=== PATIENT | female | born 1955 | race Caucasian/White ===

== ENCOUNTER 2018-07-21 18:52 | Inpatient (IN) | payer MEDICAID ==
[~2018-07-21] VITALS: Ht 157.5 cm; Wt 86.0 kg
[~2018-07-21 18:52] MED LIST: OMNIPAQUE 350 MG/ML, 100ML BOTTLE ONE
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
[2018-07-21] MEDS ORDERED: ONDANSETRON 2MG/ML, 2ML IVPush ONE (19:30)
[2018-07-21] MEDS ORDERED: PROMETHAZINE 25 MG/ML, 1ML IM ONE (19:30)
[2018-07-21] MEDS ORDERED: SODIUM CHLORIDE 0.9% 1,000ML IVBOLUS ONE (19:30)
[2018-07-21] MEDS ORDERED: FAMOTIDINE 20 MG/2 ML IVP ONE (19:30)
[2018-07-21] MEDS ORDERED: FAMOTIDINE 20 MG/2 ML ONE (19:37)
[2018-07-21] MEDS ORDERED: ONDANSETRON 2MG/ML, 2ML ONE (19:38)
[2018-07-21] MEDS ORDERED: PROMETHAZINE 25 MG/ML, 1ML ONE (19:38)
[2018-07-21] MEDS ORDERED: MORPHINE SULFATE 4 MG/ML, 1ML ONE (19:38)
[2018-07-21 19:46] LABS: BASOPHILS # (AUTO) 0.02 x10^3/uL (0-0.1); BASOPHILS % (AUTO) 0 % (0-1); EOSINOPHILS # (AUTO) 0.15 x10^3/uL (0-0.4); EOSINOPHILS % (AUTO) 2 % (1-7); LYMPHOCYTES # (AUTO) 1.56 x10^3/uL (1-3.4); LYMPHOCYTES % (AUTO) 16 % (22-44); MD NO; MEAN CORPUSCULAR HEMOGLOBIN 28.5 pg (27.0-34.8); MEAN CORPUSCULAR HGB CONC 32.7 g/dL (32.4-35.8); MEAN CORPUSCULAR VOLUME 87.4 fL (80-100); MEAN PLATELET VOLUME 8.1 fL (7.4-10.4); MONOCYTES # (AUTO) 0.47 x10^3/uL (0.2-0.8); MONOCYTES % (AUTO) 5 % (2-9); NEUTROPHILS # (AUTO) 7.62 x10^3/uL (1.8-6.8); NEUTROPHILS % (AUTO) 78 % (42-75); PLATELET COUNT 226 x10^3/uL (130-400); RED BLOOD COUNT 5.54 x10^6/uL (3.82-5.3); RED CELL DISTRIBUTION WIDTH 14.5 % (9.6-15.2)
[2018-07-21] MEDS: MORPHINE SULFATE 4 MG/ML, 1ML IVPush PRN ×2 (19:50→20:13)
[2018-07-21 19:53] LABS: ALANINE AMINOTRANSFERASE 270 U/L (12-78); ALBUMIN 3.1 g/dL (3.4-5.0); ANION GAP 9 mmol/L (5-15); CALCIUM 9.2 mg/dL (8.5-10.1); CHLORIDE 105 mmol/L (98-107); CREATININE 0.86 mg/dL (0.55-1.02)
[2018-07-21 19:55] LABS: ALKALINE PHOSPHATASE 221 U/L (45-117); BILIRUBIN,TOTAL 1.3 mg/dL (0.2-1.0)
--- NOTE | 2018-07-21 19:56 | NUR ---
NOTED PT'S LEFT A/C IV SITE DISLODGED, NO SWELLING OR REDNESS NOTED, 2X2 DSG APPLIED. NEW IV SITE STARTED, PT MEDICATED PER MAY.
--- NOTE | 2018-07-21 20:11 | NUR ---
pt to ct
--- NOTE | 2018-07-21 20:14 | NUR ---
LATE ENTRY 1950- PAIN MEDICATION ELD PT DROWSY AND NODDING OFF DURING OTHER MEDICATION ADMINISTRATION, ERP AWARE
[2018-07-21] MEDS ORDERED: INSU100C5 SQ-INSULIN (20:38)
[2018-07-21] MEDS ORDERED: METH10TA2 PO (20:38)
[2018-07-21] MEDS ORDERED: LISI5TAB7 PO (20:38)
[2018-07-21] MEDS ORDERED: OXYC5CAP2 PO (20:38)
[2018-07-21] MEDS ORDERED: ATOR20TA PO (20:38)
[2018-07-21] MEDS ORDERED: EMPA25TA PO (20:38)
[2018-07-21] MEDS ORDERED: INSU300I SQ (20:38)
[2018-07-21] MEDS ORDERED: ASPI-496 PO (20:38)
[2018-07-21] MEDS ORDERED: METF500T17 PO (20:38)
[2018-07-21] MEDS ORDERED: RANI-448 PO (20:41)
[2018-07-21] MEDS ORDERED: GABA600T7 PO (20:42)
[2018-07-21] MEDS ORDERED: GLUCAGON 1 MG IM PRN (21:00)
[2018-07-21] MEDS ORDERED: DEXTROSE 4 GM TAB.CHEW PO PRN (21:00)
[2018-07-21] MEDS ORDERED: DEXTROSE 50%, 50ML SYRINGE IVPush PRN (21:00)
--- NOTE | 2018-07-21 21:01 | NUR ---
PT RESTING WITH EYES CLOSED, NADN, RESPIRATIONS EVEN AND UNLABORED, MONITORS IN PLACE, CALL LIGHT WITHIN REACH. AWAITING ROOM FOR ADMIT
[2018-07-21 21:09] LABS: SALICYLATE LEVEL 1.8 mg/dL (2.8-20.0)
[2018-07-21 21:10] LABS: ACETAMINOPHEN < 2 mcg/mL (10-30)
[2018-07-21 21:12] LABS: TROPONIN I < 0.015 ng/mL (0.000-0.045)
[2018-07-21 22:40] VITALS: BP 145/82
[2018-07-21] MEDS: SODIUM CHLORIDE 0.9% 1,000 ML IV SCH (23:32)
[2018-07-21] MEDS: INSULIN LISPRO 100 UNITS/ML, PEN SQ-INSULIN SCH (23:32)
[2018-07-21] MEDS: SODIUM CHLORIDE FLUSH 10ML SYR IVF SCH (23:33)
[2018-07-22] MEDS: MORPHINE SULFATE 4 MG/ML, 1ML IVPush PRN ×4 (00:37→21:14)
[2018-07-22 00:40] VITALS: BP 119/73
[2018-07-22 05:09] LABS: MEAN CORPUSCULAR HEMOGLOBIN 27.7 pg (27.0-34.8); MEAN CORPUSCULAR HGB CONC 31.8 g/dL (32.4-35.8); MEAN CORPUSCULAR VOLUME 87.1 fL (80-100); MEAN PLATELET VOLUME 7.9 fL (7.4-10.4); PLATELET COUNT 224 x10^3/uL (130-400); RED CELL DISTRIBUTION WIDTH 14.8 % (9.6-15.2)
[2018-07-22 05:13] LABS: ALBUMIN 2.9 g/dL (3.4-5.0); ANION GAP 6 mmol/L (5-15); BILIRUBIN, DIRECT 0.2 mg/dL (0.1-0.2); CALCIUM 8.4 mg/dL (8.5-10.1); CHLORIDE 109 mmol/L (98-107)
[2018-07-22 05:17] LABS: ALANINE AMINOTRANSFERASE 377 U/L (12-78); ALKALINE PHOSPHATASE 206 U/L (45-117); BILIRUBIN,INDIRECT 0.4 mg/dL (0.0-2.0); BILIRUBIN,TOTAL 0.6 mg/dL (0.2-1.0); CREATININE 0.67 mg/dL (0.55-1.02); TOTAL PROTEIN 6.6 g/dL (6.4-8.2)
[2018-07-22 05:47] LABS: BASOPHILS % (AUTO) 0 % (0-1); EOSINOPHILS # (AUTO) 0.03 x10^3/uL (0-0.4); EOSINOPHILS % (AUTO) 0 % (1-7); LYMPHOCYTES % (AUTO) 7 % (22-44); MD SCAN; MONOCYTES # (AUTO) 0.48 x10^3/uL (0.2-0.8); MONOCYTES % (AUTO) 3 % (2-9); NEUTROPHILS # (AUTO) 13.65 x10^3/uL (1.8-6.8); NEUTROPHILS % (AUTO) 90 % (42-75)
[2018-07-22] MEDS: INSULIN LISPRO 100 UNITS/ML, PEN SQ-INSULIN SCH ×4 (07:00→21:03)
[2018-07-22] MEDS ORDERED: ALBUTEROL SULFATE 2.5 MG/3 ML ONE (08:08)
[2018-07-22] MEDS: ALBUTEROL SULFATE 2.5 MG/3 ML NPPB SCH ×4 (08:15→20:50)
[2018-07-22] MEDS: BUDESONIDE 0.5 MG/2 ML INHA INH SCH ×2 (08:15→20:50)
[2018-07-22 08:27] VITALS: BP 122/74
[2018-07-22] MEDS: SODIUM CHLORIDE FLUSH 10ML SYR IVF SCH ×2 (08:53→21:04)
[2018-07-22] MEDS: SODIUM CHLORIDE 0.9% 1,000 ML IV SCH (08:53)
[2018-07-22 11:00] LABS: TROPONIN I < 0.015 ng/mL (0.000-0.045)
[2018-07-22 14:01] VITALS: BP 123/76
[2018-07-22] MEDS: ONDANSETRON 2MG/ML, 2ML IVPush PRN (15:48)
[2018-07-22 19:00] VITALS: BP 131/74
[2018-07-22] MEDS ORDERED: INSULIN GLARGINE 100 UNITS/ML, PEN SQ-INSULIN SCH (21:00)
[2018-07-22] MEDS: LISINOPRIL 5 MG TABLET PO SCH (21:03)
[2018-07-22] MEDS: GABAPENTIN 300 MG CAPSULE PO SCH (21:03)
[2018-07-23 00:27] VITALS: BP 124/67
[2018-07-23] MEDS: ONDANSETRON 2MG/ML, 2ML IVPush PRN ×2 (01:49→19:39)
[2018-07-23] MEDS: MORPHINE SULFATE 4 MG/ML, 1ML IVPush PRN ×4 (01:50→19:39)
[2018-07-23] MEDS: ALBUTEROL SULFATE 2.5 MG/3 ML NPPB SCH ×4 (05:50→20:10)
[2018-07-23 06:56] LABS: BASOPHILS # (AUTO) 0.01 x10^3/uL (0-0.1); BASOPHILS % (AUTO) 0 % (0-1); EOSINOPHILS # (AUTO) 0.08 x10^3/uL (0-0.4); EOSINOPHILS % (AUTO) 1 % (1-7); LYMPHOCYTES # (AUTO) 1.75 x10^3/uL (1-3.4); LYMPHOCYTES % (AUTO) 12 % (22-44); MD NO; MEAN CORPUSCULAR HEMOGLOBIN 28.5 pg (27.0-34.8); MEAN CORPUSCULAR HGB CONC 32.4 g/dL (32.4-35.8); MEAN CORPUSCULAR VOLUME 88.1 fL (80-100); MEAN PLATELET VOLUME 7.9 fL (7.4-10.4); MONOCYTES % (AUTO) 3 % (2-9); NEUTROPHILS # (AUTO) 12.65 x10^3/uL (1.8-6.8); NEUTROPHILS % (AUTO) 84 % (42-75); PLATELET COUNT 216 x10^3/uL (130-400); RED BLOOD COUNT 5.46 x10^6/uL (3.82-5.3); RED CELL DISTRIBUTION WIDTH 14.9 % (9.6-15.2)
[2018-07-23] MEDS: INSULIN LISPRO 100 UNITS/ML, PEN SQ-INSULIN SCH ×4 (07:00→19:46)
[2018-07-23 07:05] LABS: ALBUMIN 2.7 g/dL (3.4-5.0); ANION GAP 9 mmol/L (5-15); CHLORIDE 109 mmol/L (98-107)
[2018-07-23 07:10] LABS: ALANINE AMINOTRANSFERASE 201 U/L (12-78); ALKALINE PHOSPHATASE 168 U/L (45-117); BILIRUBIN,TOTAL 0.9 mg/dL (0.2-1.0); CREATININE 0.74 mg/dL (0.55-1.02)
[2018-07-23 07:53] VITALS: BP 128/74
[2018-07-23] MEDS: ATORVASTATIN 20 MG TABLET PO SCH (08:18)
[2018-07-23] MEDS: ASPIRIN 81 MG TABLET EC PO SCH (08:18)
[2018-07-23] MEDS: SODIUM CHLORIDE FLUSH 10ML SYR IVF SCH ×2 (08:18→20:00)
[2018-07-23] MEDS: POTASSIUM CHLORIDE 10 MEQ in D5%-LACTATED RINGERS 1,000 ML IV SCH ×2 (08:18→18:25)
[2018-07-23] MEDS ORDERED: LORazepam 2 MG/ML, 1ML IVPush ONE (08:30)
[2018-07-23] MEDS: BUDESONIDE 0.5 MG/2 ML INHA INH SCH ×2 (09:00→20:10)
[2018-07-23] MEDS: LIDODERM 5% PATCH TD SCH (11:54)
[2018-07-23 13:37] VITALS: BP 132/73
[2018-07-23] MEDS ORDERED: LORazepam 2 MG/ML, 1ML ONE (13:38)
[2018-07-23 18:59] VITALS: BP 136/80
[2018-07-23] MEDS: GABAPENTIN 300 MG CAPSULE PO SCH (20:00)
[2018-07-23] MEDS: LISINOPRIL 5 MG TABLET PO SCH (20:00)
[2018-07-24 00:09] VITALS: BP 118/72
[2018-07-24] MEDS: MORPHINE SULFATE 4 MG/ML, 1ML IVPush PRN ×3 (04:39→18:34)
[2018-07-24] MEDS: POTASSIUM CHLORIDE 10 MEQ in D5%-LACTATED RINGERS 1,000 ML IV SCH ×2 (05:00→18:29)
[2018-07-24 05:57] LABS: BASOPHILS # (AUTO) 0.02 x10^3/uL (0-0.1); BASOPHILS % (AUTO) 0 % (0-1); EOSINOPHILS # (AUTO) 0.24 x10^3/uL (0-0.4); EOSINOPHILS % (AUTO) 2 % (1-7); LYMPHOCYTES # (AUTO) 0.99 x10^3/uL (1-3.4); LYMPHOCYTES % (AUTO) 9 % (22-44); MD NO; MEAN CORPUSCULAR HEMOGLOBIN 28.3 pg (27.0-34.8); MEAN CORPUSCULAR HGB CONC 32.5 g/dL (32.4-35.8); MEAN CORPUSCULAR VOLUME 87.3 fL (80-100); MEAN PLATELET VOLUME 7.9 fL (7.4-10.4); MONOCYTES # (AUTO) 0.62 x10^3/uL (0.2-0.8); MONOCYTES % (AUTO) 6 % (2-9); NEUTROPHILS # (AUTO) 9.08 x10^3/uL (1.8-6.8); NEUTROPHILS % (AUTO) 83 % (42-75); PLATELET COUNT 206 x10^3/uL (130-400); RED CELL DISTRIBUTION WIDTH 14.7 % (9.6-15.2)
[2018-07-24 06:05] LABS: ALBUMIN 2.4 g/dL (3.4-5.0); ANION GAP 6 mmol/L (5-15); CHLORIDE 110 mmol/L (98-107)
[2018-07-24 06:15] LABS: ALANINE AMINOTRANSFERASE 121 U/L (12-78); ALKALINE PHOSPHATASE 144 U/L (45-117); CALCIUM 8.9 mg/dL (8.5-10.1); CREATININE 0.78 mg/dL (0.55-1.02); TOTAL PROTEIN 6.8 g/dL (6.4-8.2)
[2018-07-24] MEDS: INSULIN LISPRO 100 UNITS/ML, PEN SQ-INSULIN SCH ×4 (07:00→20:15)
[2018-07-24] MEDS: ALBUTEROL SULFATE 2.5 MG/3 ML NPPB SCH ×2 (07:05→10:27)
[2018-07-24 07:58] VITALS: BP 119/73
[2018-07-24] MEDS: ATORVASTATIN 20 MG TABLET PO SCH (08:30)
[2018-07-24] MEDS: ASPIRIN 81 MG TABLET EC PO SCH (08:30)
[2018-07-24] MEDS: SODIUM CHLORIDE FLUSH 10ML SYR IVF SCH ×2 (08:30→20:54)
[2018-07-24] MEDS: BUDESONIDE 0.5 MG/2 ML INHA INH SCH (09:00)
[2018-07-24] MEDS: LIDODERM 5% PATCH TD SCH (11:27)
[2018-07-24 12:00] VITALS: BP 128/71
[2018-07-24] MEDS ORDERED: BUPIVACAINE/PF-EPI 0.5% 1:200K ONE (15:49)
[2018-07-24] MEDS ORDERED: MIDAZOLAM 1 MG/ML, 2ML ONE (15:55)
[2018-07-24] MEDS ORDERED: FENTANYL PF 250 MCG/5ML ONE (15:55)
[2018-07-24] MEDS ORDERED: CEFAZOLIN 1,000 MG ONE (16:08)
[2018-07-24] MEDS ORDERED: SUCCINYLCHOLINE 20 MG/ML, 10ML ONE (16:08)
[2018-07-24] MEDS ORDERED: PROPOFOL 10 MG/ML, 20ML ONE (16:08)
[2018-07-24] MEDS ORDERED: DEXAMETHASONE 4 MG/ML, 1ML ONE (16:08)
[2018-07-24] MEDS ORDERED: ONDANSETRON 2MG/ML, 2ML ONE (16:08)
[2018-07-24] MEDS ORDERED: ROCURONIUM 10 MG/ML,10ML ONE (16:08)
[2018-07-24] MEDS ORDERED: MEPERIDINE/PF 25MG/0.5ML IVPush PRN (17:00)
[2018-07-24] MEDS ORDERED: PROMETHAZINE 25 MG/ML, 1ML IV PRN (17:00)
[2018-07-24] MEDS ORDERED: ONDANSETRON 2MG/ML, 2ML IVPush PRN (17:00)
[2018-07-24] MEDS ORDERED: METOCLOPRAMIDE 5 MG/ML, 2ML IV PRN (17:00)
[2018-07-24] MEDS ORDERED: hydrALAzine 20 MG/ML, 1ML IV PRN (17:00)
[2018-07-24] MEDS ORDERED: ALBUTEROL SULFATE 2.5 MG/3 ML NPPB PRN (17:00)
[2018-07-24] MEDS ORDERED: KETOROLAC 30 MG/1 ML IV PRN (17:00)
[2018-07-24] MEDS ORDERED: OXYcodone 5 MG/5 ML ORAL.SOL UDC PO PRN (17:00)
[2018-07-24] MEDS ORDERED: FENTANYL PF 100 MCG/2ML ONE (17:02)
[2018-07-24] MEDS ORDERED: PROMETHAZINE 25 MG/ML, 1ML ONE (17:02)
[2018-07-24] MEDS ORDERED: HYDROmorphone 2 MG/ML, 1ML ONE (17:03)
[2018-07-24] MEDS: FENTANYL PF 100 MCG/2ML IV PRN ×2 (17:09→17:36)
[2018-07-24] MEDS: HYDROmorphone 1 MG/ML, 1ML INJ IV PRN ×3 (17:11→17:41)
[2018-07-24] MEDS: LABETALOL 5MG/ML, 20ML IV PRN ×2 (17:25→17:35)
[2018-07-24] MEDS ORDERED: hydrALAzine 20 MG/ML, 1ML ONE (17:29)
[2018-07-24] MEDS: GABAPENTIN 300 MG CAPSULE PO SCH (20:53)
[2018-07-24] MEDS: LISINOPRIL 5 MG TABLET PO SCH (20:53)
[2018-07-24 21:00] VITALS: BP 128/67
[2018-07-24] MEDS ORDERED: MORPHINE SULFATE 4 MG/ML, 1ML IVPush ONE (21:00)
[2018-07-25] MEDS: MORPHINE SULFATE 4 MG/ML, 1ML IVPush PRN ×5 (01:06→21:46)
[2018-07-25 02:58] VITALS: BP 115/74
[2018-07-25] MEDS: POTASSIUM CHLORIDE 10 MEQ in D5%-LACTATED RINGERS 1,000 ML IV SCH (05:07)
[2018-07-25 06:09] LABS: ALBUMIN 2.2 g/dL (3.4-5.0); ANION GAP 7 mmol/L (5-15); CHLORIDE 109 mmol/L (98-107)
[2018-07-25 06:14] LABS: ALANINE AMINOTRANSFERASE 111 U/L (12-78); ALKALINE PHOSPHATASE 147 U/L (45-117); BILIRUBIN,TOTAL 0.7 mg/dL (0.2-1.0); CREATININE 0.58 mg/dL (0.55-1.02); TOTAL PROTEIN 6.4 g/dL (6.4-8.2)
[2018-07-25 07:25] VITALS: BP 119/77
[2018-07-25] MEDS: ASPIRIN 81 MG TABLET EC PO SCH (08:50)
[2018-07-25] MEDS: SODIUM CHLORIDE FLUSH 10ML SYR IVF SCH ×2 (08:50→21:46)
[2018-07-25] MEDS: ONDANSETRON 2MG/ML, 2ML IVPush PRN ×2 (08:50→17:04)
[2018-07-25] MEDS: ATORVASTATIN 20 MG TABLET PO SCH (08:51)
[2018-07-25] MEDS: INSULIN LISPRO 100 UNITS/ML, PEN SQ-INSULIN SCH ×4 (09:19→21:45)
[2018-07-25] MEDS: SODIUM CHLORIDE 0.9% 1,000 ML IV SCH ×2 (10:16→22:55)
[2018-07-25] MEDS: LIDODERM 5% PATCH TD SCH (13:25)
[2018-07-25 14:29] VITALS: BP 130/83
[2018-07-25 19:33] VITALS: BP 117/71
[2018-07-25] MEDS: LISINOPRIL 5 MG TABLET PO SCH (21:45)
[2018-07-25] MEDS: GABAPENTIN 300 MG CAPSULE PO SCH (21:45)
[2018-07-26 00:46] VITALS: BP 117/70
[2018-07-26] MEDS: MORPHINE SULFATE 4 MG/ML, 1ML IVPush PRN ×5 (02:12→21:53)
[2018-07-26 06:34] LABS: BASOPHILS # (AUTO) 0.01 x10^3/uL (0-0.1); BASOPHILS % (AUTO) 0 % (0-1); EOSINOPHILS # (AUTO) 0.11 x10^3/uL (0-0.4); EOSINOPHILS % (AUTO) 1 % (1-7); LYMPHOCYTES # (AUTO) 1.19 x10^3/uL (1-3.4); LYMPHOCYTES % (AUTO) 10 % (22-44); MD NO; MEAN CORPUSCULAR HEMOGLOBIN 28.5 pg (27.0-34.8); MEAN CORPUSCULAR HGB CONC 32.3 g/dL (32.4-35.8); MEAN CORPUSCULAR VOLUME 88.3 fL (80-100); MEAN PLATELET VOLUME 8.1 fL (7.4-10.4); MONOCYTES # (AUTO) 0.77 x10^3/uL (0.2-0.8); MONOCYTES % (AUTO) 6 % (2-9); NEUTROPHILS % (AUTO) 83 % (42-75); PLATELET COUNT 196 x10^3/uL (130-400); RED BLOOD COUNT 4.53 x10^6/uL (3.82-5.3); RED CELL DISTRIBUTION WIDTH 14.6 % (9.6-15.2)
[2018-07-26] MEDS: INSULIN LISPRO 100 UNITS/ML, PEN SQ-INSULIN SCH ×4 (07:00→20:09)
[2018-07-26 07:13] LABS: ANION GAP 7 mmol/L (5-15); CALCIUM 8.5 mg/dL (8.5-10.1); CHLORIDE 109 mmol/L (98-107)
[2018-07-26 07:17] LABS: ALANINE AMINOTRANSFERASE 83 U/L (12-78); ALKALINE PHOSPHATASE 143 U/L (45-117); BILIRUBIN,TOTAL 1.3 mg/dL (0.2-1.0); CREATININE 0.62 mg/dL (0.55-1.02); TOTAL PROTEIN 6.2 g/dL (6.4-8.2)
[2018-07-26 08:40] VITALS: BP 134/78
[2018-07-26] MEDS: ASPIRIN 81 MG TABLET EC PO SCH (08:52)
[2018-07-26] MEDS: SODIUM CHLORIDE FLUSH 10ML SYR IVF SCH ×2 (09:00→20:07)
[2018-07-26] MEDS: SODIUM CHLORIDE 0.9% 1,000 ML IV SCH (12:59)
[2018-07-26] MEDS: LIDODERM 5% PATCH TD SCH (13:00)
[2018-07-26 15:00] VITALS: BP 138/73
[2018-07-26 19:39] VITALS: BP 127/75
[2018-07-26] MEDS: LISINOPRIL 5 MG TABLET PO SCH (20:08)
[2018-07-26] MEDS: GABAPENTIN 300 MG CAPSULE PO SCH (20:08)
[2018-07-26] MEDS: LORazepam 2 MG/ML, 1ML IVPush PRN (20:09)
[2018-07-26] MEDS: ALBUTEROL SULFATE 2.5 MG/3 ML NPPB PRN (21:59)
[2018-07-27 00:09] VITALS: BP 118/73
[2018-07-27] MEDS: SODIUM CHLORIDE 0.9% 1,000 ML IV SCH ×2 (02:32→16:30)
[2018-07-27 05:05] LABS: BASOPHILS % (AUTO) 0 % (0-1); EOSINOPHILS # (AUTO) 0.17 x10^3/uL (0-0.4); EOSINOPHILS % (AUTO) 1 % (1-7); LYMPHOCYTES # (AUTO) 0.93 x10^3/uL (1-3.4); LYMPHOCYTES % (AUTO) 8 % (22-44); MD NO; MEAN CORPUSCULAR HEMOGLOBIN 28.7 pg (27.0-34.8); MEAN CORPUSCULAR HGB CONC 32.4 g/dL (32.4-35.8); MEAN CORPUSCULAR VOLUME 88.4 fL (80-100); MEAN PLATELET VOLUME 7.8 fL (7.4-10.4); MONOCYTES % (AUTO) 7 % (2-9); NEUTROPHILS # (AUTO) 10.53 x10^3/uL (1.8-6.8); NEUTROPHILS % (AUTO) 85 % (42-75); PLATELET COUNT 201 x10^3/uL (130-400); RED BLOOD COUNT 4.36 x10^6/uL (3.82-5.3)
[2018-07-27 05:14] LABS: ALANINE AMINOTRANSFERASE 60 U/L (12-78); ALBUMIN 1.9 g/dL (3.4-5.0); ANION GAP 9 mmol/L (5-15); CALCIUM 8.8 mg/dL (8.5-10.1); CHLORIDE 109 mmol/L (98-107)
[2018-07-27 05:17] LABS: ALKALINE PHOSPHATASE 161 U/L (45-117); BILIRUBIN,TOTAL 1.1 mg/dL (0.2-1.0); CREATININE 0.41 mg/dL (0.55-1.02)
[2018-07-27 06:52] VITALS: BP 137/73
[2018-07-27] MEDS: INSULIN LISPRO 100 UNITS/ML, PEN SQ-INSULIN SCH ×4 (07:00→20:50)
[2018-07-27] MEDS: SODIUM CHLORIDE FLUSH 10ML SYR IVF SCH ×2 (09:00→20:49)
[2018-07-27] MEDS ORDERED: METHADONE ORAL.SOLN 1 MG/ML PO SCH (09:00)
[2018-07-27] MEDS: METHADONE 10 MG TABLET PO SCH (09:34)
[2018-07-27] MEDS: ASPIRIN 81 MG TABLET EC PO SCH (09:34)
[2018-07-27] MEDS: MORPHINE SULFATE 4 MG/ML, 1ML IVPush PRN ×2 (09:46→20:49)
[2018-07-27] MEDS: ALBUTEROL SULFATE 2.5 MG/3 ML NPPB PRN (10:40)
[2018-07-27] MEDS: LIDODERM 5% PATCH TD SCH (13:19)
[2018-07-27 14:07] VITALS: BP 125/70
[2018-07-27 19:40] VITALS: BP 148/81
[2018-07-27] MEDS: GABAPENTIN 300 MG CAPSULE PO SCH (20:48)
[2018-07-27] MEDS: LISINOPRIL 5 MG TABLET PO SCH (20:49)
[2018-07-27] MEDS: LORazepam 2 MG/ML, 1ML IVPush PRN (20:50)
[2018-07-28 03:26] VITALS: BP 132/75
[2018-07-28 05:41] LABS: BASOPHILS # (AUTO) 0.01 x10^3/uL (0-0.1); BASOPHILS % (AUTO) 0 % (0-1); EOSINOPHILS % (AUTO) 2 % (1-7); LYMPHOCYTES # (AUTO) 0.94 x10^3/uL (1-3.4); LYMPHOCYTES % (AUTO) 7 % (22-44); MD NO; MEAN CORPUSCULAR HEMOGLOBIN 28.4 pg (27.0-34.8); MEAN CORPUSCULAR HGB CONC 32.1 g/dL (32.4-35.8); MEAN CORPUSCULAR VOLUME 88.5 fL (80-100); MONOCYTES # (AUTO) 0.88 x10^3/uL (0.2-0.8); MONOCYTES % (AUTO) 6 % (2-9); NEUTROPHILS # (AUTO) 11.67 x10^3/uL (1.8-6.8); NEUTROPHILS % (AUTO) 85 % (42-75); PLATELET COUNT 229 x10^3/uL (130-400); RED BLOOD COUNT 4.44 x10^6/uL (3.82-5.3); RED CELL DISTRIBUTION WIDTH 14.8 % (9.6-15.2)
[2018-07-28 05:42] LABS: ALBUMIN 1.9 g/dL (3.4-5.0); ANION GAP 12 mmol/L (5-15); CHLORIDE 111 mmol/L (98-107)
[2018-07-28 05:47] LABS: ALANINE AMINOTRANSFERASE 49 U/L (12-78); ALKALINE PHOSPHATASE 204 U/L (45-117); TOTAL PROTEIN 6.2 g/dL (6.4-8.2)
[2018-07-28] MEDS: INSULIN LISPRO 100 UNITS/ML, PEN SQ-INSULIN SCH ×4 (07:00→19:54)
[2018-07-28 07:30] VITALS: BP 135/69
[2018-07-28] MEDS: SODIUM CHLORIDE 0.9% 1,000 ML IV SCH (08:24)
[2018-07-28] MEDS: SODIUM CHLORIDE FLUSH 10ML SYR IVF SCH ×2 (08:24→19:55)
[2018-07-28] MEDS: ASPIRIN 81 MG TABLET EC PO SCH (08:24)
[2018-07-28] MEDS: METHADONE 10 MG TABLET PO SCH (08:24)
[2018-07-28] MEDS: CEFTRIAXONE PMX 2GM/50ML 50 ML IV SCH (08:24)
[2018-07-28] MEDS: AZITHROMYCIN 500 MG TABLET PO SCH (08:24)
[2018-07-28] MEDS: MORPHINE SULFATE 4 MG/ML, 1ML IVPush PRN ×2 (08:48→19:56)
[2018-07-28] MEDS: LIDODERM 5% PATCH TD SCH (13:08)
[2018-07-28 13:13] VITALS: BP 92/59
[2018-07-28] MEDS: POLYETHYLENE GLYCOL 17 GM PACKET PO PRN (16:59)
[2018-07-28] MEDS: LISINOPRIL 5 MG TABLET PO SCH (19:55)
[2018-07-28] MEDS: GABAPENTIN 300 MG CAPSULE PO SCH (19:55)
[2018-07-28] MEDS: LORazepam 2 MG/ML, 1ML IVPush PRN (19:55)
[2018-07-28 20:00] VITALS: BP 110/57
[2018-07-29] MEDS: MORPHINE SULFATE 4 MG/ML, 1ML IVPush PRN ×4 (00:03→20:14)
[2018-07-29 01:47] VITALS: BP 122/71
[2018-07-29] MEDS: SODIUM CHLORIDE 0.9% 1,000 ML IV SCH ×2 (03:28→20:13)
[2018-07-29 06:21] LABS: BASOPHILS # (AUTO) 0.02 x10^3/uL (0-0.1); BASOPHILS % (AUTO) 0 % (0-1); EOSINOPHILS # (AUTO) 0.25 x10^3/uL (0-0.4); EOSINOPHILS % (AUTO) 2 % (1-7); LYMPHOCYTES # (AUTO) 1.13 x10^3/uL (1-3.4); LYMPHOCYTES % (AUTO) 10 % (22-44); MD NO; MEAN CORPUSCULAR HEMOGLOBIN 28.3 pg (27.0-34.8); MEAN CORPUSCULAR HGB CONC 32.3 g/dL (32.4-35.8); MEAN CORPUSCULAR VOLUME 87.4 fL (80-100); MEAN PLATELET VOLUME 8.1 fL (7.4-10.4); MONOCYTES # (AUTO) 0.76 x10^3/uL (0.2-0.8); MONOCYTES % (AUTO) 7 % (2-9); NEUTROPHILS # (AUTO) 9.09 x10^3/uL (1.8-6.8); NEUTROPHILS % (AUTO) 81 % (42-75); PLATELET COUNT 241 x10^3/uL (130-400)
[2018-07-29 06:36] LABS: ALBUMIN 1.7 g/dL (3.4-5.0); ANION GAP 8 mmol/L (5-15); CHLORIDE 111 mmol/L (98-107)
[2018-07-29 06:42] LABS: ALANINE AMINOTRANSFERASE 38 U/L (12-78); ALKALINE PHOSPHATASE 204 U/L (45-117); BILIRUBIN,TOTAL 0.8 mg/dL (0.2-1.0); CALCIUM 8.6 mg/dL (8.5-10.1); CREATININE 0.53 mg/dL (0.55-1.02)
[2018-07-29] MEDS: INSULIN LISPRO 100 UNITS/ML, PEN SQ-INSULIN SCH ×4 (07:00→20:15)
[2018-07-29] MEDS: ASPIRIN 81 MG TABLET EC PO SCH (08:10)
[2018-07-29] MEDS: SODIUM CHLORIDE FLUSH 10ML SYR IVF SCH ×2 (08:10→20:13)
[2018-07-29] MEDS: AZITHROMYCIN 500 MG TABLET PO SCH (08:10)
[2018-07-29] MEDS: METHADONE 10 MG TABLET PO SCH (08:10)
[2018-07-29] MEDS: CEFTRIAXONE PMX 2GM/50ML 50 ML IV SCH (08:15)
[2018-07-29 08:50] VITALS: BP 101/69
[2018-07-29] MEDS: POLYETHYLENE GLYCOL 17 GM PACKET PO PRN (11:46)
[2018-07-29 12:25] VITALS: BP 108/68
[2018-07-29] MEDS: prednisOLONE 15 MG/5 ML ORAL SOLN PO SCH (13:17)
[2018-07-29] MEDS: LIDODERM 5% PATCH TD SCH (13:18)
[2018-07-29] MEDS ORDERED: ALBUTEROL/IPRATROPIUM 2.5MG/0.5MG, 3 ML NPPB PRN (16:00)
[2018-07-29 19:59] VITALS: BP 162/79
[2018-07-29] MEDS: GABAPENTIN 300 MG CAPSULE PO SCH (20:12)
[2018-07-29] MEDS: LISINOPRIL 5 MG TABLET PO SCH (20:13)
[2018-07-29] MEDS: LORazepam 2 MG/ML, 1ML IVPush PRN (20:13)
[2018-07-30 00:54] VITALS: BP 118/75
[2018-07-30 05:35] LABS: BASOPHILS # (AUTO) 0.03 x10^3/uL (0-0.1); BASOPHILS % (AUTO) 0 % (0-1); EOSINOPHILS # (AUTO) 0.01 x10^3/uL (0-0.4); EOSINOPHILS % (AUTO) 0 % (1-7); LYMPHOCYTES # (AUTO) 1.08 x10^3/uL (1-3.4); LYMPHOCYTES % (AUTO) 9 % (22-44); MD NO; MEAN CORPUSCULAR HEMOGLOBIN 28.4 pg (27.0-34.8); MEAN CORPUSCULAR HGB CONC 32.6 g/dL (32.4-35.8); MEAN CORPUSCULAR VOLUME 87.2 fL (80-100); MEAN PLATELET VOLUME 7.7 fL (7.4-10.4); MONOCYTES # (AUTO) 0.67 x10^3/uL (0.2-0.8); MONOCYTES % (AUTO) 6 % (2-9); NEUTROPHILS % (AUTO) 85 % (42-75); PLATELET COUNT 256 x10^3/uL (130-400); RED CELL DISTRIBUTION WIDTH 14.9 % (9.6-15.2)
[2018-07-30 05:46] LABS: ALANINE AMINOTRANSFERASE 32 U/L (12-78); ALBUMIN 1.9 g/dL (3.4-5.0); ANION GAP 10 mmol/L (5-15); CALCIUM 8.9 mg/dL (8.5-10.1); CHLORIDE 111 mmol/L (98-107)
[2018-07-30 05:49] LABS: ALKALINE PHOSPHATASE 214 U/L (45-117); BILIRUBIN,TOTAL 0.6 mg/dL (0.2-1.0); TOTAL PROTEIN 6.3 g/dL (6.4-8.2)
[2018-07-30 06:53] VITALS: BP 94/55
[2018-07-30] MEDS: INSULIN LISPRO 100 UNITS/ML, PEN SQ-INSULIN SCH ×2 (07:00→11:33)
[2018-07-30] MEDS: prednisOLONE 15 MG/5 ML ORAL SOLN PO SCH (07:57)
[2018-07-30] MEDS: AZITHROMYCIN 500 MG TABLET PO SCH (07:57)
[2018-07-30] MEDS: METHADONE 10 MG TABLET PO SCH (07:57)
[2018-07-30] MEDS: CEFTRIAXONE PMX 2GM/50ML 50 ML IV SCH (07:58)
[2018-07-30] MEDS: POLYETHYLENE GLYCOL 17 GM PACKET PO PRN (07:58)
[2018-07-30] MEDS: ASPIRIN 81 MG TABLET EC PO SCH (07:58)
[2018-07-30] MEDS: SODIUM CHLORIDE FLUSH 10ML SYR IVF SCH (08:03)
[2018-07-30] MEDS ORDERED: CEFD300C37 PO (08:15)
[2018-07-30] MEDS ORDERED: AZIT250T PO (08:15)
[2018-07-30] MEDS ORDERED: PRED15SO3 PO (08:17)
[2018-07-30] MEDS: SODIUM CHLORIDE 0.9% 1,000 ML IV SCH (10:20)
[2018-07-30] MEDS: MORPHINE SULFATE 4 MG/ML, 1ML IVPush PRN (10:54)
[2018-07-30 12:52] VITALS: BP 128/69
[2018-07-30] MEDS: LIDODERM 5% PATCH TD SCH (13:17)
== END 2018-07-30 16:00 | disposition home or self-care (01) | DRG 417 ==
LOC: ED 19:43 → EDIP 21:06 → 4EST 21:38 → DCLOUNGE 07-30 15:45
PROVIDERS: ADMIT Internal Medicine; ATTEND Internal Medicine
PROC: 0FT44ZZ Resection of Gallbladder, Percutaneous Endoscopic Approach (ICD-10-PCS; principal; 2018-07-24 16:30)
DX: K80.66 Calculus of gallbladder and bile duct with acute and chronic cholecystitis without obstruction (principal); K85.10 Biliary acute pancreatitis without necrosis or infection; J18.9 Pneumonia, unspecified organism; J96.00 Acute respiratory failure, unspecified whether with hypoxia or hypercapnia; J44.0 Chronic obstructive pulmonary disease with (acute) lower respiratory infection; J44.1 Chronic obstructive pulmonary disease with (acute) exacerbation; E66.9 Obesity, unspecified; E78.5 Hyperlipidemia, unspecified; F17.200 Nicotine dependence, unspecified, uncomplicated; G89.4 Chronic pain syndrome; I10 Essential (primary) hypertension; I25.10 Atherosclerotic heart disease of native coronary artery without angina pectoris; Z88.8 Allergy status to other drugs, medicaments and biological substances; K21.9 Gastro-esophageal reflux disease without esophagitis; K76.0 Fatty (change of) liver, not elsewhere classified; Z95.5 Presence of coronary angioplasty implant and graft; Z99.81 Dependence on supplemental oxygen; E10.9 Type 1 diabetes mellitus without complications; F40.240 Claustrophobia; K82.8 Other specified diseases of gallbladder; Z68.34 Body mass index [BMI] 34.0-34.9, adult
CPT/HCPCS: 36415; 84145; 96361; 99285; J3490; J7121; J7613; J7626; 71045; 74177; 74181; 76700; 80048; 80053; 80074; 80076; 80307; 82150; 82306; 82962; 83690; 83735; 84100; 84484; 85025; 87040; 88304; 93306; 94640; 96372; 96374; G0378; J0690; J0696; J1100; J1170; J2250; J2405; J2550; J2704; J3010; J3480; C1760; J0330; J1815; J2060; J2270; J7030; J7510

== ENCOUNTER 2018-08-07 14:57 | Inpatient (IN) | payer MEDICAID ==
[~2018-08-07] VITALS: Ht 154.9 cm; Wt 73.2 kg
[~2018-08-07 14:57] MED LIST changes: +ASPI-496 PO; +ATOR20TA PO; +AZIT250T PO; +CEFD300C37 PO; +EMPA25TA PO; +GABA600T7 PO; +INSU100C5 SQ-INSULIN; +INSU300I SQ; +LISI5TAB7 PO; +METF500T17 PO; +METH10TA2 PO; -OMNIPAQUE 350 MG/ML, 100ML BOTTLE ONE; +OXYC5CAP2 PO; +PRED15SO3 PO; +RANI-448 PO
--- NOTE | 2018-08-07 15:51 | NUR ---
IVF STARTED PER MAR. 5 RIGHTS VERIFED PRIOR. POC UPDATED.
[2018-08-07] MEDS ORDERED: MORPHINE SULFATE 4 MG/ML, 1ML ONE (15:54)
[2018-08-07] MEDS ORDERED: ONDANSETRON 2MG/ML, 2ML ONE (15:54)
--- NOTE | 2018-08-07 15:57 | NUR ---
PT MEDICATED PER MAY. 5 RIGHTS VERIFIED PRIOR. 3 P'S ADDRESSED.
[2018-08-07 15:58] LABS: BASOPHILS # (AUTO) 0.05 x10^3/uL (0-0.1); BASOPHILS % (AUTO) 0 % (0-1); EOSINOPHILS # (AUTO) 0.07 x10^3/uL (0-0.4); EOSINOPHILS % (AUTO) 1 % (1-7); LYMPHOCYTES # (AUTO) 1.02 x10^3/uL (1-3.4); LYMPHOCYTES % (AUTO) 8 % (22-44); MD NO; MEAN CORPUSCULAR HEMOGLOBIN 27.6 pg (27.0-34.8); MEAN CORPUSCULAR HGB CONC 31.8 g/dL (32.4-35.8); MEAN CORPUSCULAR VOLUME 86.8 fL (80-100); MEAN PLATELET VOLUME 8.2 fL (7.4-10.4); MONOCYTES # (AUTO) 0.65 x10^3/uL (0.2-0.8); MONOCYTES % (AUTO) 5 % (2-9); NEUTROPHILS # (AUTO) 11.21 x10^3/uL (1.8-6.8); NEUTROPHILS % (AUTO) 86 % (42-75); PLATELET COUNT 318 x10^3/uL (130-400); RED CELL DISTRIBUTION WIDTH 15.2 % (9.6-15.2)
[2018-08-07] MEDS ORDERED: ONDANSETRON 2MG/ML, 2ML IVPush ONE (16:00)
[2018-08-07] MEDS ORDERED: SODIUM CHLORIDE 0.9% 1,000ML IVBOLUS ONE (16:00)
[2018-08-07] MEDS ORDERED: MORPHINE SULFATE 4 MG/ML, 1ML IVPush PRN (16:00)
[2018-08-07 16:08] LABS: ANION GAP 5 mmol/L (5-15); CALCIUM 8.4 mg/dL (8.5-10.1); CHLORIDE 104 mmol/L (98-107)
[2018-08-07 16:13] LABS: ALANINE AMINOTRANSFERASE 23 U/L (12-78); ALKALINE PHOSPHATASE 404 U/L (45-117); BILIRUBIN,TOTAL 0.4 mg/dL (0.2-1.0); TOTAL PROTEIN 6.4 g/dL (6.4-8.2)
--- NOTE | 2018-08-07 16:28 | NUR ---
PT AWARE OF NEED FOR URINE. UNABLE TO PROVIDE AT THIS TIME.
[2018-08-07] MEDS ORDERED: OMNIPAQUE 350 MG/ML, 100ML BOTTLE ONE (16:54)
[2018-08-07] MEDS ORDERED: ACETAMINOPHEN 500 MG TABLET PO ONE (17:30)
[2018-08-07] MEDS ORDERED: PIPERACILLIN/TAZO/PMX 4.5GM 100 ML IV ONE (17:30)
--- NOTE | 2018-08-07 17:45 | NUR ---
SPOKE WITH MICHELLE. PT NEEDS TO NPO UNTIL SHE GOES TO NUC MED AT 10PM. SHE CAN THEN EAT AFTER, BUT NEEDS TO BE NPO BY 0100 FOR IR IN THE MORNING. LAB AT BEDSIDE DRAWING [id number].
[2018-08-07] MEDS ORDERED: PROMETHAZINE 25 MG/ML, 1ML IM PRN (18:00)
[2018-08-07] MEDS: NICOTINE 7 MG/24 HR PATCH.TD24 TD SCH (18:00)
--- NOTE | 2018-08-07 18:10 | NUR ---
REPORT TO MERLIN FOLEY.
--- NOTE | 2018-08-07 18:15 | NUR ---
IV ABX STARTED PER MAY. 5 RIGHTS VERIFIED PRIOR. 3 P'S ADDRESSED. POC UPDATED. BC X 2 DRAWN PRIOR.
--- NOTE | 2018-08-07 18:24 | NUR ---
SPOKE WITH KEEGAN REGARDING PT'S NPO STATUS, CURRENT TEMP, AND TYLENOL. TYLENOL HELD AT THIS TIME.
[2018-08-07 19:30] VITALS: BP 104/67
[2018-08-07] MEDS: SODIUM CHLORIDE 0.9% 1,000 ML IV SCH (19:47)
[2018-08-07] MEDS: INSULIN LISPRO 100 UNITS/ML, PEN SQ-INSULIN SCH (21:00)
[2018-08-07] MEDS ORDERED: INSULIN GLARGINE 100 UNITS/ML, PEN SQ-INSULIN SCH (21:00)
[2018-08-08] MEDS: PIPERACILLIN/TAZO/PMX 3.375GM 50 ML IV SCH ×4 (00:11→19:57)
[2018-08-08] MEDS: morphine SULFATE 10 MG/ML, 1ML IVPush PRN ×4 (00:11→21:56)
[2018-08-08 00:16] VITALS: BP 106/67
[2018-08-08 00:28] LABS: MICROSCOPIC NOT IND
[2018-08-08 00:47] LABS: CULTURE INDICATED? NO
[2018-08-08] MEDS: SODIUM CHLORIDE 0.9% 1,000 ML IV SCH (04:00)
[2018-08-08] MEDS ORDERED: DEXTROSE 4 GM TAB.CHEW PO PRN (05:30)
[2018-08-08] MEDS ORDERED: GLUCAGON 1 MG IM PRN (05:30)
[2018-08-08] MEDS ORDERED: DEXTROSE 50%, 50ML SYRINGE IVPush PRN (05:30)
[2018-08-08 05:35] LABS: BASOPHILS # (AUTO) 0.03 x10^3/uL (0-0.1); BASOPHILS % (AUTO) 0 % (0-1); EOSINOPHILS % (AUTO) 1 % (1-7); LYMPHOCYTES # (AUTO) 1.54 x10^3/uL (1-3.4); LYMPHOCYTES % (AUTO) 13 % (22-44); MD NO; MEAN CORPUSCULAR HEMOGLOBIN 28.1 pg (27.0-34.8); MEAN CORPUSCULAR HGB CONC 32.2 g/dL (32.4-35.8); MEAN CORPUSCULAR VOLUME 87.2 fL (80-100); MEAN PLATELET VOLUME 8.4 fL (7.4-10.4); MONOCYTES # (AUTO) 0.88 x10^3/uL (0.2-0.8); MONOCYTES % (AUTO) 8 % (2-9); NEUTROPHILS # (AUTO) 8.95 x10^3/uL (1.8-6.8); NEUTROPHILS % (AUTO) 78 % (42-75); PLATELET COUNT 279 x10^3/uL (130-400); RED BLOOD COUNT 3.63 x10^6/uL (3.82-5.3); RED CELL DISTRIBUTION WIDTH 15.3 % (9.6-15.2)
[2018-08-08 05:52] LABS: ALANINE AMINOTRANSFERASE 18 U/L (12-78); ALBUMIN 1.7 g/dL (3.4-5.0); ANION GAP 5 mmol/L (5-15); CALCIUM 8.1 mg/dL (8.5-10.1); CHLORIDE 108 mmol/L (98-107)
[2018-08-08 05:55] LABS: ALKALINE PHOSPHATASE 340 U/L (45-117); BILIRUBIN,TOTAL 0.3 mg/dL (0.2-1.0); CREATININE 0.59 mg/dL (0.55-1.02); TOTAL PROTEIN 5.7 g/dL (6.4-8.2)
[2018-08-08] MEDS: INSULIN LISPRO 100 UNITS/ML, PEN SQ-INSULIN SCH ×4 (07:00→21:00)
[2018-08-08 07:38] VITALS: BP 113/67
[2018-08-08] MEDS: SODIUM CHLORIDE FLUSH 10ML SYR IVF SCH ×2 (08:02→21:00)
[2018-08-08] MEDS: D5%-0.45NACL+KCL 20MEQ 1,000 ML IV SCH (08:02)
[2018-08-08 08:27] LABS: PROTHROMBIN TIME 10.5 Seconds (9.6-11.5)
[2018-08-08] MEDS ORDERED: FLUMAZENIL 0.1 MG/1 ML, 5ML ONE (10:40)
[2018-08-08] MEDS ORDERED: FENTANYL PF 100 MCG/2ML ONE ×3 (10:40→14:34)
[2018-08-08] MEDS ORDERED: NALOXONE 1 MG/ML, 2ML ONE (10:40)
[2018-08-08] MEDS ORDERED: MIDAZOLAM 1 MG/ML, 5ML ONE (10:40)
[2018-08-08] MEDS ORDERED: LIDOCAINE-MPF 1%, 5ML ONE (10:40)
[2018-08-08] MEDS ORDERED: FENTANYL PF 250 MCG/5ML ONE (11:28)
[2018-08-08] MEDS ORDERED: MIDAZOLAM 1 MG/ML, 2ML ONE (11:28)
[2018-08-08] MEDS ORDERED: PHENYLEPHRINE 10 MG/ML ONE (11:29)
[2018-08-08] MEDS ORDERED: ONDANSETRON 2MG/ML, 2ML ONE ×2 (11:29→13:08)
[2018-08-08] MEDS ORDERED: DEXAMETHASONE 4 MG/ML, 1ML ONE (11:29)
[2018-08-08] MEDS ORDERED: PROPOFOL 10 MG/ML, 20ML ONE (11:29)
[2018-08-08] MEDS ORDERED: LIDOCAINE-MPF 2% ,5ML ONE (11:29)
[2018-08-08] MEDS ORDERED: SUCCINYLCHOLINE 20 MG/ML, 10ML ONE (11:29)
[2018-08-08] MEDS ORDERED: DEXTROSE 50%, 50ML SYRINGE ONE (11:40)
[2018-08-08] MEDS ORDERED: OXYcodone 5 MG/5 ML ORAL.SOL UDC PO PRN (12:00)
[2018-08-08] MEDS ORDERED: HYDROmorphone 2 MG/ML, 1ML IVPush PRN (12:00)
[2018-08-08] MEDS ORDERED: FENTANYL PF 100 MCG/2ML IV PRN (12:00)
[2018-08-08] MEDS ORDERED: HALOPERIDOL 5 MG/ML IV PRN (12:00)
[2018-08-08] MEDS ORDERED: hydrALAzine 20 MG/ML, 1ML IV PRN (12:00)
[2018-08-08] MEDS ORDERED: MEPERIDINE/PF 25MG/0.5ML IVPush PRN (12:00)
[2018-08-08] MEDS ORDERED: ALBUTEROL/IPRATROPIUM 2.5MG/0.5MG, 3 ML NPPB PRN (12:00)
[2018-08-08] MEDS ORDERED: LORazepam 2 MG/ML, 1ML IVPush PRN (12:00)
[2018-08-08] MEDS ORDERED: PROMETHAZINE 25 MG/ML, 1ML IV PRN (12:00)
[2018-08-08] MEDS ORDERED: OMNIPAQUE 350 MG/ML, 50 ML BOTTLE ONE (12:34)
[2018-08-08] MEDS ORDERED: PROPOFOL 50 ML ONE (12:45)
[2018-08-08] MEDS: ONDANSETRON 2MG/ML, 2ML IVPush PRN (13:12)
[2018-08-08 15:45] VITALS: BP 134/74
[2018-08-08] MEDS: NICOTINE 7 MG/24 HR PATCH.TD24 TD SCH (17:16)
[2018-08-08] MEDS: INSULIN GLARGINE 100 UNITS/ML, PEN SQ-INSULIN SCH (21:00)
[2018-08-08] MEDS: LISINOPRIL 5 MG TABLET PO SCH (21:29)
[2018-08-08] MEDS: GABAPENTIN 300 MG CAPSULE PO SCH (21:29)
[2018-08-09] MEDS: D5%-0.45NACL+KCL 20MEQ 1,000 ML IV SCH (00:35)
[2018-08-09 01:16] VITALS: BP 129/68
[2018-08-09] MEDS: PIPERACILLIN/TAZO/PMX 3.375GM 50 ML IV SCH ×4 (02:05→20:48)
[2018-08-09 05:21] LABS: MEAN CORPUSCULAR HEMOGLOBIN 27.8 pg (27.0-34.8); MEAN CORPUSCULAR VOLUME 86.8 fL (80-100); MEAN PLATELET VOLUME 8.5 fL (7.4-10.4); PLATELET COUNT 279 x10^3/uL (130-400); RED BLOOD COUNT 4.32 x10^6/uL (3.82-5.3); RED CELL DISTRIBUTION WIDTH 14.9 % (9.6-15.2)
[2018-08-09 05:32] LABS: ALANINE AMINOTRANSFERASE 34 U/L (12-78); ALBUMIN 1.8 g/dL (3.4-5.0); ANION GAP 6 mmol/L (5-15); CALCIUM 8.8 mg/dL (8.5-10.1); CHLORIDE 106 mmol/L (98-107); CREATININE 0.56 mg/dL (0.55-1.02)
[2018-08-09 05:35] LABS: ALKALINE PHOSPHATASE 531 U/L (45-117); BILIRUBIN,TOTAL 0.5 mg/dL (0.2-1.0); TOTAL PROTEIN 6.5 g/dL (6.4-8.2)
[2018-08-09 05:48] LABS: BASOPHILS # (AUTO) 0.01 x10^3/uL (0-0.1); BASOPHILS % (AUTO) 0 % (0-1); EOSINOPHILS % (AUTO) 0 % (1-7); LYMPHOCYTES # (AUTO) 0.69 x10^3/uL (1-3.4); LYMPHOCYTES % (AUTO) 8 % (22-44); MD SCAN; MONOCYTES # (AUTO) 0.18 x10^3/uL (0.2-0.8); MONOCYTES % (AUTO) 2 % (2-9); NEUTROPHILS # (AUTO) 8.11 x10^3/uL (1.8-6.8); NEUTROPHILS % (AUTO) 90 % (42-75)
[2018-08-09 07:15] VITALS: BP 128/74
[2018-08-09] MEDS: SODIUM CHLORIDE FLUSH 10ML SYR IVF SCH ×2 (08:23→20:52)
[2018-08-09] MEDS: ASPIRIN 81 MG TABLET EC PO SCH (08:24)
[2018-08-09] MEDS: FAMOTIDINE 20 MG TABLET PO SCH (08:25)
[2018-08-09] MEDS: METHADONE 10 MG TABLET PO SCH (08:25)
[2018-08-09] MEDS: INSULIN LISPRO 100 UNITS/ML, PEN SQ-INSULIN SCH ×4 (09:48→22:08)
[2018-08-09] MEDS: morphine SULFATE 10 MG/ML, 1ML IVPush PRN ×3 (12:12→21:58)
[2018-08-09 13:18] VITALS: BP 94/55
[2018-08-09] MEDS: NICOTINE 7 MG/24 HR PATCH.TD24 TD SCH (17:11)
[2018-08-09 19:12] VITALS: BP 96/59
[2018-08-09] MEDS: ATORVASTATIN 20 MG TABLET PO SCH (20:49)
[2018-08-09] MEDS: GABAPENTIN 300 MG CAPSULE PO SCH (20:52)
[2018-08-09] MEDS: LISINOPRIL 5 MG TABLET PO SCH (20:53)
[2018-08-09] MEDS: INSULIN GLARGINE 100 UNITS/ML, PEN SQ-INSULIN SCH (21:59)
[2018-08-10] MEDS: morphine SULFATE 10 MG/ML, 1ML IVPush PRN ×3 (03:20→19:54)
[2018-08-10] MEDS: PIPERACILLIN/TAZO/PMX 3.375GM 50 ML IV SCH ×4 (03:20→22:19)
[2018-08-10 03:26] VITALS: BP 90/57
[2018-08-10 06:53] VITALS: BP 93/52
[2018-08-10] MEDS: INSULIN LISPRO 100 UNITS/ML, PEN SQ-INSULIN SCH ×4 (07:00→22:19)
[2018-08-10] MEDS: FAMOTIDINE 20 MG TABLET PO SCH (08:07)
[2018-08-10] MEDS: ATORVASTATIN 20 MG TABLET PO SCH (08:07)
[2018-08-10] MEDS: METHADONE 10 MG TABLET PO SCH (08:07)
[2018-08-10] MEDS: SODIUM CHLORIDE FLUSH 10ML SYR IVF SCH ×2 (08:07→19:54)
[2018-08-10] MEDS: ASPIRIN 81 MG TABLET EC PO SCH (08:07)
[2018-08-10 12:47] VITALS: BP 93/55
[2018-08-10] MEDS: NICOTINE 7 MG/24 HR PATCH.TD24 TD SCH (17:28)
[2018-08-10 19:12] VITALS: BP 95/57
[2018-08-10] MEDS: ONDANSETRON ODT 4 MG PO PRN (19:53)
[2018-08-10] MEDS: GABAPENTIN 300 MG CAPSULE PO SCH (19:54)
[2018-08-10] MEDS: LISINOPRIL 5 MG TABLET PO SCH (19:55)
[2018-08-10] MEDS: INSULIN GLARGINE 100 UNITS/ML, PEN SQ-INSULIN SCH (22:19)
[2018-08-11 02:05] VITALS: BP 114/71
[2018-08-11] MEDS: PIPERACILLIN/TAZO/PMX 3.375GM 50 ML IV SCH ×4 (04:21→23:12)
[2018-08-11 05:16] LABS: BASOPHILS # (AUTO) 0.03 x10^3/uL (0-0.1); BASOPHILS % (AUTO) 1 % (0-1); EOSINOPHILS # (AUTO) 0.13 x10^3/uL (0-0.4); EOSINOPHILS % (AUTO) 2 % (1-7); LYMPHOCYTES # (AUTO) 2.15 x10^3/uL (1-3.4); LYMPHOCYTES % (AUTO) 32 % (22-44); MD NO; MEAN CORPUSCULAR HEMOGLOBIN 27.8 pg (27.0-34.8); MEAN CORPUSCULAR HGB CONC 31.7 g/dL (32.4-35.8); MEAN CORPUSCULAR VOLUME 87.4 fL (80-100); MEAN PLATELET VOLUME 8.3 fL (7.4-10.4); MONOCYTES # (AUTO) 0.54 x10^3/uL (0.2-0.8); MONOCYTES % (AUTO) 8 % (2-9); NEUTROPHILS # (AUTO) 3.83 x10^3/uL (1.8-6.8); NEUTROPHILS % (AUTO) 57 % (42-75); PLATELET COUNT 288 x10^3/uL (130-400); RED BLOOD COUNT 4.14 x10^6/uL (3.82-5.3); RED CELL DISTRIBUTION WIDTH 15.6 % (9.6-15.2)
[2018-08-11 05:21] LABS: ALBUMIN 1.9 g/dL (3.4-5.0); ANION GAP 4 mmol/L (5-15); CALCIUM 8.6 mg/dL (8.5-10.1); CHLORIDE 109 mmol/L (98-107)
[2018-08-11 05:25] LABS: ALANINE AMINOTRANSFERASE 21 U/L (12-78); ALKALINE PHOSPHATASE 319 U/L (45-117); BILIRUBIN,TOTAL 0.4 mg/dL (0.2-1.0); CREATININE 0.85 mg/dL (0.55-1.02); TOTAL PROTEIN 5.9 g/dL (6.4-8.2)
[2018-08-11 07:40] VITALS: BP 94/63
[2018-08-11] MEDS: SODIUM CHLORIDE FLUSH 10ML SYR IVF SCH ×2 (09:00→21:00)
[2018-08-11] MEDS: ATORVASTATIN 20 MG TABLET PO SCH (09:18)
[2018-08-11] MEDS: ASPIRIN 81 MG TABLET EC PO SCH (09:18)
[2018-08-11] MEDS: FAMOTIDINE 20 MG TABLET PO SCH (09:18)
[2018-08-11] MEDS: METHADONE 10 MG TABLET PO SCH (09:18)
[2018-08-11] MEDS: INSULIN LISPRO 100 UNITS/ML, PEN SQ-INSULIN SCH ×4 (09:18→21:50)
[2018-08-11 15:55] VITALS: BP 108/62
[2018-08-11 16:51] VITALS: BP 108/62
[2018-08-11] MEDS: NICOTINE 7 MG/24 HR PATCH.TD24 TD SCH (18:00)
[2018-08-11 18:49] VITALS: BP 114/68
[2018-08-11] MEDS ORDERED: INSULIN GLARGINE 100 UNITS/ML, PEN SQ-INSULIN SCH (21:00)
[2018-08-11] MEDS: morphine SULFATE 10 MG/ML, 1ML IVPush PRN (21:49)
[2018-08-11] MEDS: LISINOPRIL 5 MG TABLET PO SCH (21:51)
[2018-08-11] MEDS: GABAPENTIN 300 MG CAPSULE PO SCH (21:52)
[2018-08-12 01:10] VITALS: BP 121/74
[2018-08-12] MEDS: morphine SULFATE 10 MG/ML, 1ML IVPush PRN ×4 (04:42→23:45)
[2018-08-12] MEDS: PIPERACILLIN/TAZO/PMX 3.375GM 50 ML IV SCH ×4 (04:42→23:37)
[2018-08-12 07:05] VITALS: BP 107/59
[2018-08-12] MEDS: SODIUM CHLORIDE FLUSH 10ML SYR IVF SCH ×2 (08:01→20:21)
[2018-08-12] MEDS: ASPIRIN 81 MG TABLET EC PO SCH (08:15)
[2018-08-12] MEDS: METHADONE 10 MG TABLET PO SCH (08:15)
[2018-08-12] MEDS: ATORVASTATIN 20 MG TABLET PO SCH (08:15)
[2018-08-12] MEDS: FAMOTIDINE 20 MG TABLET PO SCH (08:15)
[2018-08-12] MEDS: INSULIN LISPRO 100 UNITS/ML, PEN SQ-INSULIN SCH ×4 (08:16→22:40)
[2018-08-12 14:01] VITALS: BP 91/59
[2018-08-12] MEDS: NICOTINE 7 MG/24 HR PATCH.TD24 TD SCH (18:00)
[2018-08-12 19:52] VITALS: BP 100/58
[2018-08-12] MEDS: GABAPENTIN 300 MG CAPSULE PO SCH (20:21)
[2018-08-12] MEDS: LISINOPRIL 5 MG TABLET PO SCH (21:00)
[2018-08-12] MEDS ORDERED: INSULIN GLARGINE 100 UNITS/ML, PEN SQ-INSULIN SCH (21:00)
[2018-08-13 01:16] VITALS: BP 116/61
[2018-08-13 04:47] LABS: BASOPHILS # (AUTO) 0.03 x10^3/uL (0-0.1); BASOPHILS % (AUTO) 0 % (0-1); EOSINOPHILS # (AUTO) 0.26 x10^3/uL (0-0.4); EOSINOPHILS % (AUTO) 4 % (1-7); LYMPHOCYTES # (AUTO) 2.13 x10^3/uL (1-3.4); LYMPHOCYTES % (AUTO) 32 % (22-44); MD NO; MEAN CORPUSCULAR HGB CONC 31.9 g/dL (32.4-35.8); MEAN CORPUSCULAR VOLUME 87.6 fL (80-100); MEAN PLATELET VOLUME 8.2 fL (7.4-10.4); MONOCYTES # (AUTO) 0.42 x10^3/uL (0.2-0.8); MONOCYTES % (AUTO) 6 % (2-9); NEUTROPHILS # (AUTO) 3.79 x10^3/uL (1.8-6.8); NEUTROPHILS % (AUTO) 57 % (42-75); PLATELET COUNT 274 x10^3/uL (130-400); RED BLOOD COUNT 4.57 x10^6/uL (3.82-5.3); RED CELL DISTRIBUTION WIDTH 15.4 % (9.6-15.2)
[2018-08-13 04:51] LABS: ALANINE AMINOTRANSFERASE 19 U/L (12-78); ALBUMIN 2.3 g/dL (3.4-5.0); ANION GAP 5 mmol/L (5-15); CALCIUM 8.8 mg/dL (8.5-10.1); CHLORIDE 107 mmol/L (98-107); CREATININE 1.01 mg/dL (0.55-1.02)
[2018-08-13 04:53] LABS: ALKALINE PHOSPHATASE 241 U/L (45-117); BILIRUBIN,TOTAL 0.5 mg/dL (0.2-1.0); TOTAL PROTEIN 6.2 g/dL (6.4-8.2)
[2018-08-13] MEDS: PIPERACILLIN/TAZO/PMX 3.375GM 50 ML IV SCH ×4 (05:22→23:27)
[2018-08-13 06:47] VITALS: BP 96/60
[2018-08-13] MEDS: INSULIN LISPRO 100 UNITS/ML, PEN SQ-INSULIN SCH ×4 (08:32→20:51)
[2018-08-13] MEDS: ATORVASTATIN 20 MG TABLET PO SCH (08:33)
[2018-08-13] MEDS: SODIUM CHLORIDE FLUSH 10ML SYR IVF SCH ×2 (08:33→20:47)
[2018-08-13] MEDS: METHADONE 10 MG TABLET PO SCH (08:33)
[2018-08-13] MEDS: FAMOTIDINE 20 MG TABLET PO SCH (08:34)
[2018-08-13] MEDS: ASPIRIN 81 MG TABLET EC PO SCH (08:34)
[2018-08-13 13:13] VITALS: BP 102/61
[2018-08-13] MEDS: NICOTINE 7 MG/24 HR PATCH.TD24 TD SCH (17:32)
[2018-08-13] MEDS: morphine SULFATE 10 MG/ML, 1ML IVPush PRN ×2 (17:58→23:48)
[2018-08-13 19:41] VITALS: BP 110/72
[2018-08-13] MEDS ORDERED: GABAPENTIN 100 MG CAPSULE ONE (20:39)
[2018-08-13] MEDS: LISINOPRIL 5 MG TABLET PO SCH (20:48)
[2018-08-13] MEDS: GABAPENTIN 300 MG CAPSULE PO SCH (20:49)
[2018-08-13] MEDS: ONDANSETRON 2MG/ML, 2ML IVPush PRN (20:51)
[2018-08-13] MEDS ORDERED: INSULIN GLARGINE 100 UNITS/ML, PEN SQ-INSULIN SCH (21:00)
[2018-08-13] MEDS ORDERED: DIAZEPAM 5 MG/ML, 10ML VIAL IVPush ONE (21:30)
[2018-08-13] MEDS ORDERED: morphine SULFATE 10 MG/ML, 1ML IVPush ONE (21:30)
[2018-08-14 01:14] VITALS: BP 92/57
[2018-08-14] MEDS: morphine SULFATE 10 MG/ML, 1ML IVPush PRN ×3 (05:52→21:36)
[2018-08-14] MEDS: PIPERACILLIN/TAZO/PMX 3.375GM 50 ML IV SCH ×4 (05:52→23:28)
[2018-08-14 06:36] VITALS: BP 91/60
[2018-08-14] MEDS: SODIUM CHLORIDE FLUSH 10ML SYR IVF SCH ×2 (08:03→21:27)
[2018-08-14] MEDS: FAMOTIDINE 20 MG TABLET PO SCH (08:03)
[2018-08-14] MEDS: ASPIRIN 81 MG TABLET EC PO SCH (08:03)
[2018-08-14] MEDS: INSULIN LISPRO 100 UNITS/ML, PEN SQ-INSULIN SCH ×4 (08:03→21:29)
[2018-08-14] MEDS: ATORVASTATIN 20 MG TABLET PO SCH (08:03)
[2018-08-14] MEDS: METHADONE 10 MG TABLET PO SCH (08:03)
[2018-08-14 09:32] LABS: BASOPHILS # (AUTO) 0.04 x10^3/uL (0-0.1); BASOPHILS % (AUTO) 1 % (0-1); EOSINOPHILS # (AUTO) 0.24 x10^3/uL (0-0.4); EOSINOPHILS % (AUTO) 3 % (1-7); LYMPHOCYTES # (AUTO) 1.84 x10^3/uL (1-3.4); LYMPHOCYTES % (AUTO) 24 % (22-44); MD NO; MEAN CORPUSCULAR HEMOGLOBIN 27.1 pg (27.0-34.8); MEAN CORPUSCULAR HGB CONC 31.5 g/dL (32.4-35.8); MEAN CORPUSCULAR VOLUME 85.9 fL (80-100); MEAN PLATELET VOLUME 7.7 fL (7.4-10.4); MONOCYTES # (AUTO) 0.39 x10^3/uL (0.2-0.8); MONOCYTES % (AUTO) 5 % (2-9); NEUTROPHILS # (AUTO) 5.15 x10^3/uL (1.8-6.8); NEUTROPHILS % (AUTO) 67 % (42-75); PLATELET COUNT 264 x10^3/uL (130-400); RED BLOOD COUNT 4.63 x10^6/uL (3.82-5.3); RED CELL DISTRIBUTION WIDTH 15.2 % (9.6-15.2)
[2018-08-14 09:43] LABS: ALANINE AMINOTRANSFERASE 20 U/L (12-78); ALBUMIN 2.5 g/dL (3.4-5.0); ANION GAP 7 mmol/L (5-15); CALCIUM 8.8 mg/dL (8.5-10.1); CHLORIDE 106 mmol/L (98-107); CREATININE 0.95 mg/dL (0.55-1.02)
[2018-08-14 09:45] LABS: ALKALINE PHOSPHATASE 217 U/L (45-117); BILIRUBIN,TOTAL 0.3 mg/dL (0.2-1.0); TOTAL PROTEIN 6.7 g/dL (6.4-8.2)
[2018-08-14 13:51] VITALS: BP 91/57
[2018-08-14 17:46] VITALS: BP 97/60
[2018-08-14] MEDS: NICOTINE 7 MG/24 HR PATCH.TD24 TD SCH (17:47)
[2018-08-14 19:06] VITALS: BP 98/62
[2018-08-14] MEDS: LISINOPRIL 5 MG TABLET PO SCH (21:27)
[2018-08-14] MEDS: GABAPENTIN 300 MG CAPSULE PO SCH (21:27)
[2018-08-14] MEDS: INSULIN GLARGINE 100 UNITS/ML, PEN SQ-INSULIN SCH (21:28)
[2018-08-15 01:23] VITALS: BP 97/60
[2018-08-15] MEDS: PIPERACILLIN/TAZO/PMX 3.375GM 50 ML IV SCH ×4 (05:41→23:43)
[2018-08-15] MEDS: INSULIN LISPRO 100 UNITS/ML, PEN SQ-INSULIN SCH ×4 (07:00→20:08)
[2018-08-15 07:21] VITALS: BP 102/62
[2018-08-15] MEDS: SODIUM CHLORIDE FLUSH 10ML SYR IVF SCH ×2 (09:07→20:10)
[2018-08-15] MEDS: FAMOTIDINE 20 MG TABLET PO SCH (09:07)
[2018-08-15] MEDS: METHADONE 10 MG TABLET PO SCH (09:07)
[2018-08-15] MEDS: ATORVASTATIN 20 MG TABLET PO SCH (09:07)
[2018-08-15] MEDS: ASPIRIN 81 MG TABLET EC PO SCH (09:07)
[2018-08-15] MEDS: INSULIN GLARGINE 100 UNITS/ML, PEN SQ-INSULIN SCH ×2 (11:09→20:32)
[2018-08-15 14:40] VITALS: BP 93/58
[2018-08-15] MEDS: NICOTINE 7 MG/24 HR PATCH.TD24 TD SCH (16:21)
[2018-08-15 18:59] VITALS: BP 95/64
[2018-08-15] MEDS: LISINOPRIL 5 MG TABLET PO SCH ×2 (20:07→20:09)
[2018-08-15] MEDS: GABAPENTIN 300 MG CAPSULE PO SCH (20:07)
[2018-08-15] MEDS: morphine SULFATE 10 MG/ML, 1ML IVPush PRN ×2 (20:08→22:20)
[2018-08-16 01:05] VITALS: BP 100/64
[2018-08-16] MEDS: morphine SULFATE 10 MG/ML, 1ML IVPush PRN ×3 (04:21→22:16)
[2018-08-16] MEDS: PIPERACILLIN/TAZO/PMX 3.375GM 50 ML IV SCH ×4 (05:14→23:12)
[2018-08-16 06:15] LABS: BASOPHILS # (AUTO) 0.03 x10^3/uL (0-0.1); BASOPHILS % (AUTO) 1 % (0-1); EOSINOPHILS # (AUTO) 0.28 x10^3/uL (0-0.4); EOSINOPHILS % (AUTO) 5 % (1-7); LYMPHOCYTES # (AUTO) 1.78 x10^3/uL (1-3.4); LYMPHOCYTES % (AUTO) 28 % (22-44); MD NO; MEAN CORPUSCULAR HEMOGLOBIN 28.1 pg (27.0-34.8); MEAN CORPUSCULAR VOLUME 87.6 fL (80-100); MEAN PLATELET VOLUME 8.6 fL (7.4-10.4); MONOCYTES # (AUTO) 0.54 x10^3/uL (0.2-0.8); MONOCYTES % (AUTO) 9 % (2-9); NEUTROPHILS # (AUTO) 3.63 x10^3/uL (1.8-6.8); NEUTROPHILS % (AUTO) 58 % (42-75); PLATELET COUNT 227 x10^3/uL (130-400); RED BLOOD COUNT 4.74 x10^6/uL (3.82-5.3); RED CELL DISTRIBUTION WIDTH 15.9 % (9.6-15.2)
[2018-08-16 06:25] LABS: CHLORIDE 108 mmol/L (98-107)
[2018-08-16 06:32] LABS: ALANINE AMINOTRANSFERASE 18 U/L (12-78); ALBUMIN 2.6 g/dL (3.4-5.0); ALKALINE PHOSPHATASE 175 U/L (45-117); ANION GAP 6 mmol/L (5-15); BILIRUBIN,TOTAL 0.4 mg/dL (0.2-1.0); CALCIUM 8.7 mg/dL (8.5-10.1); CREATININE 0.92 mg/dL (0.55-1.02); TOTAL PROTEIN 6.5 g/dL (6.4-8.2)
[2018-08-16] MEDS: INSULIN LISPRO 100 UNITS/ML, PEN SQ-INSULIN SCH ×4 (07:00→19:53)
[2018-08-16 07:07] VITALS: BP 98/65
[2018-08-16] MEDS: ATORVASTATIN 20 MG TABLET PO SCH (07:59)
[2018-08-16] MEDS: FAMOTIDINE 20 MG TABLET PO SCH (07:59)
[2018-08-16] MEDS: ASPIRIN 81 MG TABLET EC PO SCH (07:59)
[2018-08-16] MEDS: METHADONE 10 MG TABLET PO SCH (07:59)
[2018-08-16] MEDS: INSULIN GLARGINE 100 UNITS/ML, PEN SQ-INSULIN SCH ×2 (08:00→19:53)
[2018-08-16] MEDS: SODIUM CHLORIDE FLUSH 10ML SYR IVF SCH ×2 (08:02→19:54)
[2018-08-16] MEDS: ONDANSETRON ODT 4 MG PO PRN ×2 (11:44→22:27)
[2018-08-16 15:12] VITALS: BP 104/68
[2018-08-16] MEDS: NICOTINE 7 MG/24 HR PATCH.TD24 TD SCH (17:18)
[2018-08-16 18:57] VITALS: BP 95/65
[2018-08-16] MEDS: GABAPENTIN 300 MG CAPSULE PO SCH (19:51)
[2018-08-16] MEDS: LISINOPRIL 5 MG TABLET PO SCH ×2 (19:52→19:55)
[2018-08-17 01:13] VITALS: BP 96/62
[2018-08-17] MEDS: PIPERACILLIN/TAZO/PMX 3.375GM 50 ML IV SCH ×4 (05:41→23:38)
[2018-08-17] MEDS: INSULIN LISPRO 100 UNITS/ML, PEN SQ-INSULIN SCH ×4 (07:00→21:49)
[2018-08-17 07:56] VITALS: BP 100/64
[2018-08-17] MEDS: INSULIN GLARGINE 100 UNITS/ML, PEN SQ-INSULIN SCH ×2 (08:00→21:51)
[2018-08-17] MEDS: SODIUM CHLORIDE FLUSH 10ML SYR IVF SCH ×2 (09:00→21:51)
[2018-08-17] MEDS: FAMOTIDINE 20 MG TABLET PO SCH (09:34)
[2018-08-17] MEDS: ASPIRIN 81 MG TABLET EC PO SCH (09:34)
[2018-08-17] MEDS: METHADONE 10 MG TABLET PO SCH (09:34)
[2018-08-17] MEDS: ATORVASTATIN 20 MG TABLET PO SCH (09:34)
[2018-08-17] MEDS: ONDANSETRON 2MG/ML, 2ML IVPush PRN ×2 (12:04→21:45)
[2018-08-17 13:17] VITALS: BP 91/62
[2018-08-17] MEDS: morphine SULFATE 10 MG/ML, 1ML IVPush PRN ×2 (14:42→21:42)
[2018-08-17] MEDS: NICOTINE 7 MG/24 HR PATCH.TD24 TD SCH (16:37)
[2018-08-17 19:08] VITALS: BP 91/59
[2018-08-17 21:40] VITALS: BP 113/71
[2018-08-17] MEDS: GABAPENTIN 300 MG CAPSULE PO SCH (21:48)
[2018-08-17] MEDS: LISINOPRIL 5 MG TABLET PO SCH (21:48)
[2018-08-18 02:00] VITALS: BP 99/65
[2018-08-18 04:55] LABS: BASOPHILS # (AUTO) 0.03 x10^3/uL (0-0.1); BASOPHILS % (AUTO) 0 % (0-1); EOSINOPHILS # (AUTO) 0.27 x10^3/uL (0-0.4); EOSINOPHILS % (AUTO) 4 % (1-7); LYMPHOCYTES # (AUTO) 2.02 x10^3/uL (1-3.4); LYMPHOCYTES % (AUTO) 30 % (22-44); MD NO; MEAN CORPUSCULAR HEMOGLOBIN 27.8 pg (27.0-34.8); MEAN CORPUSCULAR VOLUME 87.1 fL (80-100); MEAN PLATELET VOLUME 8.8 fL (7.4-10.4); MONOCYTES # (AUTO) 0.68 x10^3/uL (0.2-0.8); MONOCYTES % (AUTO) 10 % (2-9); NEUTROPHILS # (AUTO) 3.82 x10^3/uL (1.8-6.8); NEUTROPHILS % (AUTO) 56 % (42-75); PLATELET COUNT 187 x10^3/uL (130-400); RED BLOOD COUNT 4.48 x10^6/uL (3.82-5.3); RED CELL DISTRIBUTION WIDTH 15.9 % (9.6-15.2)
[2018-08-18 05:04] LABS: CHLORIDE 110 mmol/L (98-107)
[2018-08-18 05:05] LABS: ALANINE AMINOTRANSFERASE 17 U/L (12-78); ALBUMIN 2.5 g/dL (3.4-5.0); ANION GAP 5 mmol/L (5-15); CALCIUM 8.6 mg/dL (8.5-10.1)
[2018-08-18 05:07] LABS: ALKALINE PHOSPHATASE 150 U/L (45-117); BILIRUBIN,TOTAL 0.4 mg/dL (0.2-1.0); CREATININE 0.73 mg/dL (0.55-1.02); TOTAL PROTEIN 6.5 g/dL (6.4-8.2)
[2018-08-18] MEDS: PIPERACILLIN/TAZO/PMX 3.375GM 50 ML IV SCH ×4 (05:37→23:31)
[2018-08-18] MEDS: INSULIN LISPRO 100 UNITS/ML, PEN SQ-INSULIN SCH ×4 (07:00→20:55)
[2018-08-18 07:47] VITALS: BP 91/56
[2018-08-18] MEDS: INSULIN GLARGINE 100 UNITS/ML, PEN SQ-INSULIN SCH ×2 (08:00→20:54)
[2018-08-18] MEDS: SODIUM CHLORIDE FLUSH 10ML SYR IVF SCH ×2 (09:00→21:01)
[2018-08-18] MEDS: FAMOTIDINE 20 MG TABLET PO SCH (09:48)
[2018-08-18] MEDS: ASPIRIN 81 MG TABLET EC PO SCH (09:48)
[2018-08-18] MEDS: METHADONE 10 MG TABLET PO SCH (09:48)
[2018-08-18] MEDS: ATORVASTATIN 20 MG TABLET PO SCH (09:48)
[2018-08-18 11:10] LABS: BASOPHILS # (AUTO) 0.03 x10^3/uL (0-0.1); BASOPHILS % (AUTO) 0 % (0-1); EOSINOPHILS # (AUTO) 0.34 x10^3/uL (0-0.4); EOSINOPHILS % (AUTO) 4 % (1-7); LYMPHOCYTES % (AUTO) 19 % (22-44); MD NO; MEAN CORPUSCULAR HEMOGLOBIN 27.4 pg (27.0-34.8); MEAN CORPUSCULAR VOLUME 85.7 fL (80-100); MEAN PLATELET VOLUME 8.5 fL (7.4-10.4); MONOCYTES # (AUTO) 0.66 x10^3/uL (0.2-0.8); MONOCYTES % (AUTO) 8 % (2-9); NEUTROPHILS % (AUTO) 69 % (42-75); PLATELET COUNT 195 x10^3/uL (130-400); RED BLOOD COUNT 4.65 x10^6/uL (3.82-5.3); RED CELL DISTRIBUTION WIDTH 15.7 % (9.6-15.2)
[2018-08-18 14:51] VITALS: BP 95/62
[2018-08-18] MEDS: NICOTINE 7 MG/24 HR PATCH.TD24 TD SCH (18:00)
[2018-08-18 19:52] VITALS: BP 109/69
[2018-08-18 20:33] VITALS: BP 109/67
[2018-08-18] MEDS: LISINOPRIL 5 MG TABLET PO SCH (20:53)
[2018-08-18] MEDS: morphine SULFATE 10 MG/ML, 1ML IVPush PRN (20:53)
[2018-08-18] MEDS: GABAPENTIN 300 MG CAPSULE PO SCH (20:53)
[2018-08-19 01:40] VITALS: BP 98/61
[2018-08-19] MEDS: morphine SULFATE 10 MG/ML, 1ML IVPush PRN ×3 (04:26→21:20)
[2018-08-19 04:55] LABS: ALBUMIN 2.4 g/dL (3.4-5.0); CALCIUM 8.9 mg/dL (8.5-10.1); CHLORIDE 110 mmol/L (98-107)
[2018-08-19 05:00] LABS: ALANINE AMINOTRANSFERASE 17 U/L (12-78); ALKALINE PHOSPHATASE 135 U/L (45-117); ANION GAP 5 mmol/L (5-15); BILIRUBIN,TOTAL 0.3 mg/dL (0.2-1.0); CREATININE 0.72 mg/dL (0.55-1.02); TOTAL PROTEIN 6.3 g/dL (6.4-8.2)
[2018-08-19] MEDS: PIPERACILLIN/TAZO/PMX 3.375GM 50 ML IV SCH ×4 (05:26→23:27)
[2018-08-19 06:22] VITALS: BP 91/52
[2018-08-19] MEDS: INSULIN LISPRO 100 UNITS/ML, PEN SQ-INSULIN SCH ×4 (07:00→21:22)
[2018-08-19] MEDS: INSULIN GLARGINE 100 UNITS/ML, PEN SQ-INSULIN SCH ×2 (07:50→21:57)
[2018-08-19] MEDS: FAMOTIDINE 20 MG TABLET PO SCH (08:23)
[2018-08-19] MEDS: ASPIRIN 81 MG TABLET EC PO SCH (08:23)
[2018-08-19] MEDS: METHADONE 10 MG TABLET PO SCH (08:23)
[2018-08-19] MEDS: ATORVASTATIN 20 MG TABLET PO SCH (08:23)
[2018-08-19] MEDS: SODIUM CHLORIDE FLUSH 10ML SYR IVF SCH ×2 (08:24→21:20)
[2018-08-19 13:30] VITALS: BP 100/62
[2018-08-19] MEDS: ONDANSETRON ODT 4 MG PO PRN (13:50)
[2018-08-19] MEDS: NICOTINE 7 MG/24 HR PATCH.TD24 TD SCH (17:38)
[2018-08-19 18:38] VITALS: BP 92/57
[2018-08-19] MEDS: GABAPENTIN 300 MG CAPSULE PO SCH (21:20)
[2018-08-19 21:28] VITALS: BP 110/71
[2018-08-19] MEDS: LISINOPRIL 5 MG TABLET PO SCH (21:30)
[2018-08-20 01:22] VITALS: BP 106/67
[2018-08-20] MEDS: PIPERACILLIN/TAZO/PMX 3.375GM 50 ML IV SCH ×4 (05:31→23:22)
[2018-08-20] MEDS: OXYcodone IR 5MG TABLET PO PRN ×3 (05:38→20:00)
[2018-08-20 06:36] VITALS: BP 103/66
[2018-08-20] MEDS: INSULIN LISPRO 100 UNITS/ML, PEN SQ-INSULIN SCH ×4 (07:00→20:03)
[2018-08-20] MEDS: SODIUM CHLORIDE FLUSH 10ML SYR IVF SCH ×2 (09:00→19:50)
[2018-08-20] MEDS: ATORVASTATIN 20 MG TABLET PO SCH (09:50)
[2018-08-20] MEDS: ASPIRIN 81 MG TABLET EC PO SCH (09:50)
[2018-08-20] MEDS: FAMOTIDINE 20 MG TABLET PO SCH (09:50)
[2018-08-20] MEDS: METHADONE 10 MG TABLET PO SCH (09:50)
[2018-08-20] MEDS: ENOXAPARIN 40 MG/0.4 ML SQ SCH (11:00)
[2018-08-20 12:16] VITALS: BP 110/61
[2018-08-20 18:50] VITALS: BP 105/64
[2018-08-20] MEDS: GABAPENTIN 300 MG CAPSULE PO SCH (19:49)
[2018-08-20] MEDS: LISINOPRIL 5 MG TABLET PO SCH (19:49)
[2018-08-20] MEDS: INSULIN GLARGINE 100 UNITS/ML, PEN SQ-INSULIN SCH (20:02)
[2018-08-21] MEDS: OXYcodone IR 5MG TABLET PO PRN ×4 (00:22→16:27)
[2018-08-21 00:27] VITALS: BP 106/65
[2018-08-21] MEDS: PIPERACILLIN/TAZO/PMX 3.375GM 50 ML IV SCH ×4 (05:10→23:31)
[2018-08-21 06:18] VITALS: BP 90/59
[2018-08-21] MEDS: INSULIN LISPRO 100 UNITS/ML, PEN SQ-INSULIN SCH ×4 (07:00→20:58)
[2018-08-21] MEDS: FAMOTIDINE 20 MG TABLET PO SCH (08:27)
[2018-08-21] MEDS: METHADONE 10 MG TABLET PO SCH (08:27)
[2018-08-21] MEDS: ATORVASTATIN 20 MG TABLET PO SCH (08:27)
[2018-08-21] MEDS: ASPIRIN 81 MG TABLET EC PO SCH (08:27)
[2018-08-21] MEDS: INSULIN GLARGINE 100 UNITS/ML, PEN SQ-INSULIN SCH ×2 (08:28→20:58)
[2018-08-21] MEDS: SODIUM CHLORIDE FLUSH 10ML SYR IVF SCH ×2 (08:29→20:58)
[2018-08-21] MEDS: ENOXAPARIN 40 MG/0.4 ML SQ SCH (11:00)
[2018-08-21 13:18] VITALS: BP 92/55
[2018-08-21 19:07] VITALS: BP 105/68
[2018-08-21] MEDS: LISINOPRIL 5 MG TABLET PO SCH (20:57)
[2018-08-21] MEDS: GABAPENTIN 300 MG CAPSULE PO SCH (20:57)
[2018-08-22] MEDS: OXYcodone IR 5MG TABLET PO PRN ×4 (00:47→20:51)
[2018-08-22 00:52] VITALS: BP 98/66
[2018-08-22] MEDS: PIPERACILLIN/TAZO/PMX 3.375GM 50 ML IV SCH ×4 (05:23→23:15)
[2018-08-22 06:12] LABS: MEAN CORPUSCULAR HEMOGLOBIN 28.6 pg (27.0-34.8); MEAN CORPUSCULAR HGB CONC 32.9 g/dL (32.4-35.8); MEAN CORPUSCULAR VOLUME 86.8 fL (80-100); MEAN PLATELET VOLUME 9.3 fL (7.4-10.4); PLATELET COUNT 171 x10^3/uL (130-400); RED BLOOD COUNT 4.17 x10^6/uL (3.82-5.3); RED CELL DISTRIBUTION WIDTH 15.7 % (9.6-15.2)
[2018-08-22 06:15] LABS: ALBUMIN 2.4 g/dL (3.4-5.0); ANION GAP 6 mmol/L (5-15); CALCIUM 8.9 mg/dL (8.5-10.1); CHLORIDE 108 mmol/L (98-107)
[2018-08-22 06:18] LABS: ALANINE AMINOTRANSFERASE 20 U/L (12-78); ALKALINE PHOSPHATASE 124 U/L (45-117); BILIRUBIN,TOTAL 0.3 mg/dL (0.2-1.0); TOTAL PROTEIN 6.2 g/dL (6.4-8.2)
[2018-08-22 06:33] LABS: BASOPHILS # (AUTO) 0.06 x10^3/uL (0-0.1); BASOPHILS % (AUTO) 1 % (0-1); EOSINOPHILS # (AUTO) 0.54 x10^3/uL (0-0.4); EOSINOPHILS % (AUTO) 9 % (1-7); LYMPHOCYTES % (AUTO) 34 % (22-44); MD SCAN; MONOCYTES # (AUTO) 0.59 x10^3/uL (0.2-0.8); MONOCYTES % (AUTO) 10 % (2-9); NEUTROPHILS # (AUTO) 2.82 x10^3/uL (1.8-6.8); NEUTROPHILS % (AUTO) 46 % (42-75)
[2018-08-22] MEDS: SODIUM CHLORIDE FLUSH 10ML SYR IVF SCH ×2 (07:42→20:51)
[2018-08-22 08:25] VITALS: BP 101/67
[2018-08-22] MEDS: INSULIN LISPRO 100 UNITS/ML, PEN SQ-INSULIN SCH ×4 (08:34→19:50)
[2018-08-22] MEDS: INSULIN GLARGINE 100 UNITS/ML, PEN SQ-INSULIN SCH ×2 (08:34→19:50)
[2018-08-22] MEDS: FAMOTIDINE 20 MG TABLET PO SCH (08:35)
[2018-08-22] MEDS: ATORVASTATIN 20 MG TABLET PO SCH (08:35)
[2018-08-22] MEDS: METHADONE 10 MG TABLET PO SCH (08:35)
[2018-08-22] MEDS: ASPIRIN 81 MG TABLET EC PO SCH (08:35)
[2018-08-22] MEDS: ENOXAPARIN 40 MG/0.4 ML SQ SCH (08:35)
[2018-08-22 14:34] VITALS: BP 109/69
[2018-08-22 18:54] VITALS: BP 104/62
[2018-08-22] MEDS: LISINOPRIL 5 MG TABLET PO SCH (20:51)
[2018-08-22] MEDS: GABAPENTIN 300 MG CAPSULE PO SCH (20:51)
[2018-08-23 00:41] VITALS: BP 103/67
[2018-08-23] MEDS: OXYcodone IR 5MG TABLET PO PRN ×3 (01:54→22:59)
[2018-08-23] MEDS: PIPERACILLIN/TAZO/PMX 3.375GM 50 ML IV SCH ×4 (05:21→22:59)
[2018-08-23 06:05] LABS: BASOPHILS # (AUTO) 0.06 x10^3/uL (0-0.1); BASOPHILS % (AUTO) 1 % (0-1); EOSINOPHILS # (AUTO) 0.57 x10^3/uL (0-0.4); EOSINOPHILS % (AUTO) 11 % (1-7); LYMPHOCYTES # (AUTO) 2.02 x10^3/uL (1-3.4); LYMPHOCYTES % (AUTO) 38 % (22-44); MD NO; MEAN CORPUSCULAR HEMOGLOBIN 27.4 pg (27.0-34.8); MEAN CORPUSCULAR VOLUME 85.7 fL (80-100); MEAN PLATELET VOLUME 9.1 fL (7.4-10.4); MONOCYTES # (AUTO) 0.57 x10^3/uL (0.2-0.8); MONOCYTES % (AUTO) 11 % (2-9); NEUTROPHILS # (AUTO) 2.16 x10^3/uL (1.8-6.8); NEUTROPHILS % (AUTO) 40 % (42-75); PLATELET COUNT 162 x10^3/uL (130-400); RED BLOOD COUNT 4.21 x10^6/uL (3.82-5.3); RED CELL DISTRIBUTION WIDTH 15.6 % (9.6-15.2)
[2018-08-23 06:17] LABS: ANION GAP 3 mmol/L (5-15); CHLORIDE 108 mmol/L (98-107)
[2018-08-23 06:19] LABS: CREATININE 0.67 mg/dL (0.55-1.02)
[2018-08-23 06:50] VITALS: BP 103/61
[2018-08-23] MEDS: SODIUM CHLORIDE FLUSH 10ML SYR IVF SCH ×2 (06:55→19:45)
[2018-08-23] MEDS: INSULIN LISPRO 100 UNITS/ML, PEN SQ-INSULIN SCH ×4 (07:00→19:54)
[2018-08-23] MEDS: INSULIN GLARGINE 100 UNITS/ML, PEN SQ-INSULIN SCH (07:48)
[2018-08-23] MEDS: ASPIRIN 81 MG TABLET EC PO SCH (07:50)
[2018-08-23] MEDS: ATORVASTATIN 20 MG TABLET PO SCH (07:50)
[2018-08-23] MEDS: FAMOTIDINE 20 MG TABLET PO SCH (07:50)
[2018-08-23] MEDS: METHADONE 10 MG TABLET PO SCH (09:12)
[2018-08-23] MEDS: ENOXAPARIN 40 MG/0.4 ML SQ SCH (11:00)
[2018-08-23] MEDS ORDERED: LORazepam 2 MG/ML, 1ML IVPush ONE (12:30)
[2018-08-23 15:59] VITALS: BP 105/65
[2018-08-23 18:50] VITALS: BP 111/65
[2018-08-23] MEDS: GABAPENTIN 300 MG CAPSULE PO SCH (19:44)
[2018-08-23] MEDS: LISINOPRIL 5 MG TABLET PO SCH (19:45)
[2018-08-23] MEDS ORDERED: INSULIN GLARGINE 100 UNITS/ML, PEN SQ-INSULIN SCH (21:00)
[2018-08-24 00:30] VITALS: BP 100/65
[2018-08-24] MEDS: PIPERACILLIN/TAZO/PMX 3.375GM 50 ML IV SCH ×2 (05:04→11:24)
[2018-08-24] MEDS: OXYcodone IR 5MG TABLET PO PRN ×2 (05:04→13:02)
[2018-08-24 05:24] LABS: BASOPHILS # (AUTO) 0.05 x10^3/uL (0-0.1); BASOPHILS % (AUTO) 1 % (0-1); EOSINOPHILS # (AUTO) 0.74 x10^3/uL (0-0.4); EOSINOPHILS % (AUTO) 12 % (1-7); LYMPHOCYTES # (AUTO) 1.91 x10^3/uL (1-3.4); LYMPHOCYTES % (AUTO) 31 % (22-44); MD NO; MEAN CORPUSCULAR HEMOGLOBIN 27.3 pg (27.0-34.8); MEAN CORPUSCULAR HGB CONC 31.7 g/dL (32.4-35.8); MEAN CORPUSCULAR VOLUME 86.2 fL (80-100); MEAN PLATELET VOLUME 8.9 fL (7.4-10.4); MONOCYTES # (AUTO) 0.51 x10^3/uL (0.2-0.8); MONOCYTES % (AUTO) 8 % (2-9); NEUTROPHILS # (AUTO) 3.08 x10^3/uL (1.8-6.8); NEUTROPHILS % (AUTO) 49 % (42-75); PLATELET COUNT 163 x10^3/uL (130-400)
[2018-08-24 05:34] LABS: CHLORIDE 108 mmol/L (98-107)
[2018-08-24 05:42] LABS: ANION GAP 6 mmol/L (5-15); CREATININE 0.65 mg/dL (0.55-1.02)
[2018-08-24 07:00] VITALS: BP 95/64
[2018-08-24] MEDS: INSULIN GLARGINE 100 UNITS/ML, PEN SQ-INSULIN SCH (08:19)
[2018-08-24] MEDS: METHADONE 10 MG TABLET PO SCH (08:20)
[2018-08-24] MEDS: ENOXAPARIN 40 MG/0.4 ML SQ SCH (08:20)
[2018-08-24] MEDS: SODIUM CHLORIDE FLUSH 10ML SYR IVF SCH (08:20)
[2018-08-24] MEDS: ASPIRIN 81 MG TABLET EC PO SCH (08:20)
[2018-08-24] MEDS: INSULIN LISPRO 100 UNITS/ML, PEN SQ-INSULIN SCH ×2 (08:20→13:02)
[2018-08-24] MEDS: ATORVASTATIN 20 MG TABLET PO SCH (08:20)
[2018-08-24] MEDS: FAMOTIDINE 20 MG TABLET PO SCH (08:20)
== END 2018-08-24 16:30 | disposition home or self-care (01) | DRG 871 ==
LOC: ED 17:14 → EDIP 17:15 → ED 17:20 → 3NE 19:07 → DCLOUNGE 08-24 16:03
PROVIDERS: ADMIT Internal Medicine; ATTEND Internal Medicine
PROC: 0W9G30Z Drainage of Peritoneal Cavity with Drainage Device, Percutaneous Approach (ICD-10-PCS; 2018-08-07)
PROC: 0F798DZ Dilation of Common Bile Duct with Intraluminal Device, Via Natural or Artificial Opening Endoscopic (ICD-10-PCS; principal; 2018-08-08 12:00)
DX: A41.59 Other Gram-negative sepsis (principal); K65.3 Choleperitonitis; K91.89 Other postprocedural complications and disorders of digestive system; J96.11 Chronic respiratory failure with hypoxia; F11.20 Opioid dependence, uncomplicated; K81.0 Acute cholecystitis; R74.8 Abnormal levels of other serum enzymes; E11.9 Type 2 diabetes mellitus without complications; I25.10 Atherosclerotic heart disease of native coronary artery without angina pectoris; Y83.8 Other surgical procedures as the cause of abnormal reaction of the patient, or of later complication, without mention of misadventure at the time of the procedure; G89.29 Other chronic pain; R91.1 Solitary pulmonary nodule; E66.9 Obesity, unspecified; F17.200 Nicotine dependence, unspecified, uncomplicated; N28.1 Cyst of kidney, acquired; Z79.4 Long term (current) use of insulin; Z95.5 Presence of coronary angioplasty implant and graft; Z87.01 Personal history of pneumonia (recurrent); Z99.81 Dependence on supplemental oxygen; Z68.30 Body mass index [BMI] 30.0-30.9, adult; Z90.49 Acquired absence of other specified parts of digestive tract
CPT/HCPCS: 36415; 74328; 75989; 96361; 99285; J3490; 49405; 71045; 74177; 78226; 80048; 80053; 81003; 82962; 83690; 83735; 84100; 85025; 85610; 87040; 87070; 87075; 87077; 87186; 87205; 93005; 96374; 96375; G0378; J1100; J2250; J2405; J2543; J2704; J3010; Q0162; Q9967; A9537; C1729; C1769; C1894; C2625; C9898; J0330; J1815; J2060; J2270; J2310; J2370; J3480; J7030